=== PATIENT | female | born 1980 | race Caucasian/White ===

== ENCOUNTER 2021-01-30 20:14 | Emergency (ER) | payer OTHER, SELFPAY ==
--- NOTE | 2021-01-30 20:22 | DI.RAD.S_ITS ---
PROCEDURE: XR KNEE RT 3V INDICATIONS: knee pain x6 months TECHNIQUE: 3 views of the knee were acquired. COMPARISON: None. FINDINGS: Bones: No fracture. Mild narrowing of the medial lateral joint spaces. Scattered degenerative subchondral sclerosis and spurring. Soft tissues: Small joint effusion. IMPRESSION: Small joint effusion. Mild degenerative changes. If the patient's pain or other symptoms persist, consider further evaluation with MRI Dictated by: Daniel Dhillon M.D. on 01/30/2021 at 21:05 Approved by: Daniel Dhillon M.D. on 01/30/2021 at 21:06
--- NOTE | 2021-01-30 20:22 | DI.RAD.S_ITS ---
PROCEDURE: XR ANKLE RT MIN 3V INDICATIONS: ankle pain after injury TECHNIQUE: 3 views of the ankle were acquired. COMPARISON: None. FINDINGS: Bones: No definite fracture. Large plantar calcaneal spur. Tibiotalar joint degenerative changes. Possible widening of the distal tibiofibular syndesmotic interval. Soft tissues: No tibiotalar joint effusion. Achilles tendon appears normal. IMPRESSION: Possible widening of the distal tibiofibular syndesmosis although recommend clinical correlation, and if necessary further evaluation with MRI ankle could be considered. No acute fracture Large plantar calcaneal spur Dictated by: Daniel Dhillon M.D. on 01/30/2021 at 20:55 Approved by: Daniel Dhillon M.D. on 01/30/2021 at 21:05
[2021-01-30 20:25] VITALS: BP 191/111; PULSE 106; RESP 20; TEMP 37.1; O2SAT 97; BMI 40.7
[2021-01-30 21:59] VITALS: BP 177/85; PULSE 85; RESP 16; O2SAT 98
--- NOTE | 2021-01-31 00:54 | ED.LOWEXIN ---
HPI - Extremity Injury (Lower) General Chief Complaint: Extremity Injury, Lower Stated Complaint: RIGHT KNEE AND ANKLE PAIN Time Seen by Provider: 01/30/21 20:15 Source: patient Mode of arrival: Ambulatory Limitations: no limitations History of Present Illness HPI Narrative: 40-year-old female nonsmoker with noncontributory medical history presents with a chief complaint of knee pain for the past 6 months and in a cool injuryFor the past 4 days. She states that about 6 months ago she was walking her dog which ran in front of her causing her to fall, she states that she fell while twisting her knee awkwardly and has had pain in the knee ever since. She denies any instability but does admit to pain and sometimes clicking with ambulation. She states she has been walking with a bit of a limp which she thinks contributed to her stepping awkwardly a few days ago on her right ankle. She has felt pain on her medial ankle with ambulation since. She denies any numbness, tingling or weakness. She walked in without much difficulty. She has not been seen for other injury yet MD complaint: knee injury and ankle injury Onset (ago): day(s) Injury: Right: ankle Type of Injury: inversion Place: street/outdoors Severity: moderate Relieving factors: immobilization and rest Exacerbating factors: weight bearing and movement Context: walking Associated symptoms: ambulatory Other symptoms: none Treatments prior to arrival: cold therapy and NSAIDS Related Data Allergies Allergy/AdvReac Type Severity Reaction Status Date / Time No Known Drug Allergies Allergy Verified 01/30/21 20:28 Review of Systems Constitutional Constitutional: Denies chills, Denies fatigue, Denies fever(s), Denies frequent falls, Denies lethargy and Denies weakness Eyes Eyes: Denies change in vision, Denies eye discharge, Denies irritation and Denies loss of vision ENT Ears, Nose, Mouth, and Throat: Denies change in voice, Denies dizziness, Denies neck pain, Denies sore throat and Denies throat swelling Cardiovascular Cardiovascular: Denies chest pain, Denies irregular heart rhythm, Denies lightheadedness, Denies palpitations, Denies dyspnea, Denies dyspnea on exertion and Denies orthopnea Respiratory Respiratory: Denies cough, Denies dyspnea, Denies dyspnea on exertion and Denies wheezing Gastrointestinal Gastrointestinal: Denies abdominal pain, Denies change in bowel habits, Denies diarrhea, Denies nausea and Denies vomiting Musculoskeletal Musculoskeletal: Reports arthralgias, Reports joint swelling, Reports limited range of motion, Denies neck pain and Denies numbness Integumentary/Breasts Skin/Breast: Denies pruritus, Denies erythema, Denies rash and Denies wounds Neurologic Neurologic: Denies behavioral changes, Denies confusion, Denies dizziness, Denies frequent falls, Denies loss of vision, Denies numbness and Denies weakness Psychiatric Psychiatric: Denies anxiety, Denies behavioral changes, Denies confusion, Denies depression, Denies homicidal ideation and Denies suicidal ideation Endocrine Endocrine: Denies fatigue, Denies flushing and Denies palpitations Hematologic/Lymphatic Hematologic/Lymphatic: Denies easy bruising Allergic/Immunologic Allergic/Immunologic: Denies urticaria, Denies throat swelling and Denies wheezing Patient History Social History Smoking Status: Never smoker Smoking Status: Never smoker alcohol intake frequency: 0-2 drinks per day Substance Use Type: marijuana Exam Narrative Exam Narrative: GEN: AOx3 and in mild distress EYES: Pupils are equal, round, and reactive to light and accommodation. Extraoccular muscles are intact bilaterally. There is no subconjunctival hemorrhage or exudate. CHEST: Lungs are clear to auscultation bilaterally and free of wheezes, rales, or rhonchi. Heart rate is regular rhythm, there are no murmurs, clicks, rubs, or gallops. There is no chest wall tenderness. ABD: Abdomen is soft and nontender. There is no guarding or rebound. Bowel sounds are normal in all 4 quadrants. There is no mass or organomegaly. EXT: Full range of motion of right knee with no ligamentous instability or obvious effusion. No erythema or warmth. No bony or joint line tenderness. No pain with Makenzie's. Mild pain with squeeze test of lower tib-fib, no obvious deformity, numbness or tingling. Cap refill less than 2 seconds. No ligamentous instability of the ankle, patient reports pain with forced eversion ankle SKIN: Warm, pink, and dry. No erythema or rash Initial Vital Signs Initial Vital Signs: Vital Signs Temperature 98.7 F 01/30/21 20:25 Pulse Rate 106 H 01/30/21 20:25 Respiratory Rate 20 01/30/21 20:25 Blood Pressure 191/111 H 01/30/21 20:25 Pulse Oximetry 97 01/30/21 20:25 Procedures Orthopedic Splinting/Casting Injury #1: Side: right Lower Extremity Injury Location: ankle Lower Extremity Immobilizer: boot orthosis Post splinting neuro exam: intact Post splinting vascular exam: intact Placed by: Nursing Course Orders Ordered: ED Orders 01/30/21 20:22 XR ankle RT min 3V Stat XR knee RT 3V Stat Vital Signs Vital signs: Vital Signs - 8 hr 01/30/21 20:25 01/30/21 21:59 Temperature 98.7 F Pulse Rate 106 H 85 Respiratory Rate 20 16 Blood Pressure 191/111 H 177/85 H Pulse Oximetry 97 98 MDM - Extremity Injury (Lower) Imaging Data Extremity x-ray #1: Radiologist's Impression: Chart Viewer Diagnostics DATE TYPE STATUS REF RANGE/AUTHOR Hx 01/30/21 20:22 Daniel Dhillon 01/30/21 20:22 Daniel Dhillon Lashell Bro 40, 1980 [facility], [facility] ED 170.18cm 117.934kg BMI: 40.7kg/m? Extremity Injury, Lower Search Chart No Data to Display No Data to Display ONSET 01/30/21 21:59 Lashell Bro 40 F [address] [id number] ReportSigned Patient: Lashell Bro MMR#: [id number]: 1980Acct:[id number]/Sex: 40 / FDate of Service: 01/30/21Loc: EDAccession Number: [id number] Procedure: XR knee RT 3V Ordering Provider: Carlos Cornejo D.O. PROCEDURE: XR KNEE RT 3V INDICATIONS: knee pain x6 months TECHNIQUE: 3 views of the knee were acquired. COMPARISON: None. FINDINGS: Bones: No fracture. Mild narrowing of the medial lateral joint spaces. Scattered degenerative subchondral sclerosis and spurring. Soft tissues: Small joint effusion. IMPRESSION: Small joint effusion. Mild degenerative changes. If the patient's pain or other symptoms persist, consider further evaluation with MRI Dictated by: Daniel Dhillon M.D. on 01/30/2021 at 21:05 Approved by: Daniel Dhillon M.D. on 01/30/2021 at 21:06 Extremity x-ray #2: Radiologist's Impression: [address] [id number] ReportSigned Patient: Lashell Bro MMR#: [id number]: 1980Acct:[id number]/Sex: 40 / FDate of Service: 01/30/21Loc: EDAccession Number: [id number] Procedure: XR ankle RT min 3V Ordering Provider: Carlos Cornejo D.O. PROCEDURE: XR ANKLE RT MIN 3V INDICATIONS: ankle pain after injury TECHNIQUE: 3 views of the ankle were acquired. COMPARISON: None. FINDINGS: Bones: No definite fracture. Large plantar calcaneal spur. Tibiotalar joint degenerative changes. Possible widening of the distal tibiofibular syndesmotic interval. Soft tissues: No tibiotalar joint effusion. Achilles tendon appears normal. IMPRESSION: Possible widening of the distal tibiofibular syndesmosis although recommend clinical correlation, and if necessary further evaluation with MRI ankle could be considered. No acute fracture Large plantar calcaneal spur Dictated by: Daniel Dhillon M.D. on 01/30/2021 at 20:55 Approved by: Daniel Dhiloln M.D. on 01/30/2021 at 21:05 [facility] Narrative Medical decision making narrative: Reassuring knee exam and x-ray demonstrates small effusion, question meniscal injury and discussed utility of outpatient MRI with patient. Ankle x-ray with questionable syndesmotic injury and positive squeeze test raising the question of possible syndesmotic lesion. Boot orthosis and need for follow-up discussed with patient, return precautions given. Questions answered to her apparent satisfaction. Discharge Plan Departure Patient Disposition: Home Clinical Impression: Ankle sprain and strain Knee effusion Qualifiers: Laterality: right Qualified Code(s): M25.461 - Effusion, right knee Instructions: Ankle Sprain, DI for Knee Sprain Activity Restrictions/Additional Instructions: *You have been diagnosed with [high ankle sprain, likely due to knee injury for many months ago. The x-ray of your ankle suggest there may an injury to tibia-fibular syndesmosis hence the use of the walking boot] *What to do: *Take medications as directed: Tylenol or Motrin for pain *Follow up with your primary care provider in 2-3 days, call for an appointment. Let them know you were seen in the Emergency Department and that we ask that you be seen in follow up *Return to ER if you should have any new, worsening or concerning symptoms
== END 2021-01-30 22:01 | disposition home or self-care (01) ==
PROVIDERS: Emergency Provider Emergency Medicine
DX: S93.401A Sprain of unspecified ligament of right ankle, initial encounter (principal); S96.911A Strain of unspecified muscle and tendon at ankle and foot level, right foot, initial encounter; M25.461 Effusion, right knee; W19.XXXA Unspecified fall, initial encounter
CPT/HCPCS: 73562; 73610; 99283